=== PATIENT | male | born 1970 ===

== ENCOUNTER 2024-03-11 14:09 | Emergency (ER) | payer SELFPAY ==
[2024-03-11] MEDS: Acetaminophen/HYDROcodone 325-5 MG Tab PO ONE (14:26)
[2024-03-11] MEDS: Sodium Chloride 0.9% 1,000 ML IV ONE (14:26)
[2024-03-11 14:27] LABS: BASOPHILS ABSOLUTE AUTO 0.05 K/uL (0.00-0.20); BASOPHILS PERCENT AUTO 0.6 % (0.0-1.0); HEMATOCRIT 47.8 % (42.0-52.0); HEMOGLOBIN 16.4 g/dL (14.0-18.0); IMMATURE GRAN ABSOLUTE AUTO 0.01 K/uL (0.00-0.05); IMMATURE GRAN PERCENT AUTO 0.1 % (0.0-0.4); LYMPHOCYTES ABSOLUTE AUTO 2.13 K/uL (1.00-4.80); LYMPHOCYTES PERCENT AUTO 26.7 % (24.0-44.0); MEAN CORPUSCULAR HGB CONC 34.3 g/dL (32.0-36.0); MEAN CORPUSCULAR VOLUME 87.4 fL (83.0-99.0); MEAN PLATELET VOLUME 9.7 fL (9.4-12.4); MONOCYTES ABSOLUTE AUTO 0.44 K/uL (0.00-0.80); MONOCYTES PERCENT AUTO 5.5 % (0.0-8.0); NEUTROPHILS ABSOLUTE AUTO 5.35 K/uL (1.80-7.70); NEUTROPHILS PERCENT AUTO 67.1 % (41.0-71.0); PLATELET COUNT,PLT 206 K/uL (150-400); RED BLOOD CELL COUNT 5.47 M/uL (4.52-5.90); WHITE BLOOD CELL COUNT,WBC 7.98 K/uL (3.9-11.3)
[2024-03-11] MEDS: Lisinopril 10 MG Tab PO ONE (14:28)
[2024-03-11] MEDS: Ondansetron 4 MG Tab.DIS PO ONE (14:29)
[2024-03-11 15:01] LABS: ALBUMIN 3.8 g/dL (3.4-5.0); BILIRUBIN TOTAL 0.6 mg/dL (0.2-1.0); CALCIUM 8.6 mg/dL (8.5-10.1); CARBON DIOXIDE,CO2 24.3 mmol/L (21.0-32.0); CREATININE 1.1 mg/dL (0.8-1.3); EST CRCL DRUG DOSING (CG) 70.94 mL/min; POTASSIUM,K 3.9 mmol/L (3.5-5.1); PROTEIN TOTAL,TP 7.6 g/dL (6.4-8.2)
[2024-03-11] MEDS: hydrALAZINE 20 MG/ML SDV IVPUSH ONE (16:01)
[2024-03-11 16:16] LABS: APPEARANCE,URINE CLEAR; BILIRUBIN,URINE NEGATIVE (NEGATIVE); COLOR,URINE YELLOW; GLUCOSE,URINE NEGATIVE (NEGATIVE); KETONES,URINE NEGATIVE (NEGATIVE); LEUKOCYTE ESTERASE,URINE NEGATIVE (NEGATIVE); NITRITE,URINE NEGATIVE (NEGATIVE); OCCULT BLOOD,URINE NEGATIVE (NEGATIVE); PH,URINE 6.5 (5.0-8.0); PROTEIN,URINE NEGATIVE (NEGATIVE); UROBILINOGEN,URINE 0.2 EU/dL (<2.0)
== END 2024-03-11 16:42 | disposition home or self-care (01) ==
LOC: MW.ED 14:09
DX: I10 Essential (primary) hypertension (principal); Z79.899 Other long term (current) drug therapy; Z75.8 Other problems related to medical facilities and other health care
CPT/HCPCS: 36415; 80053; 81003; 84484; 85025; 93005; 96361; 96374; 99283; A9270; J0360; J7030; 93010; 99284

== ENCOUNTER 2024-03-12 15:34 | Emergency (ER) | payer SELFPAY ==
[2024-03-12] MEDS: hydrALAZINE 20 MG/ML SDV IVPUSH ONE ×2 (16:29→16:57)
== END 2024-03-12 17:23 | disposition home or self-care (01) ==
LOC: MW.ED 15:34
DX: R03.0 Elevated blood-pressure reading, without diagnosis of hypertension (principal)
CPT/HCPCS: 96374; 99283; J0360; 99284

== ENCOUNTER 2024-05-21 22:07 | Emergency (ER) | payer SELFPAY ==
[2024-05-21 22:52] LABS: BASOPHILS ABSOLUTE AUTO 0.06 K/uL (0.00-0.20); BASOPHILS PERCENT AUTO 0.5 % (0.0-1.0); EOSINOPHILS ABSOLUTE AUTO 0.11 K/uL (0.00-0.45); HEMATOCRIT 43.1 % (42.0-52.0); HEMOGLOBIN 15.1 g/dL (14.0-18.0); IMMATURE GRAN ABSOLUTE AUTO 0.02 K/uL (0.00-0.05); IMMATURE GRAN PERCENT AUTO 0.2 % (0.0-0.4); LYMPHOCYTES ABSOLUTE AUTO 3.07 K/uL (1.00-4.80); MEAN CORPUSCULAR HEMOGLOBIN 30.6 pg (28.0-32.0); MEAN CORPUSCULAR VOLUME 87.2 fL (83.0-99.0); MEAN PLATELET VOLUME 9.7 fL (9.4-12.4); MONOCYTES ABSOLUTE AUTO 0.65 K/uL (0.00-0.80); MONOCYTES PERCENT AUTO 5.9 % (0.0-8.0); NEUTROPHILS ABSOLUTE AUTO 7.06 K/uL (1.80-7.70); NEUTROPHILS PERCENT AUTO 64.4 % (41.0-71.0); PLATELET COUNT,PLT 252 K/uL (150-400); RED BLOOD CELL COUNT 4.94 M/uL (4.52-5.90); WHITE BLOOD CELL COUNT,WBC 10.97 K/uL (3.9-11.3)
[2024-05-21] MEDS: Sodium Chloride 0.9% 500 ML IV ONE (23:08)
[2024-05-21] MEDS: Sodium Chloride 0.9% 2.5 ML Syringe FLUSH PRN (23:08)
[2024-05-21] MEDS: Albuterol/Ipratropium 3.0-0.5 MG/3 ML Neb Soln NEB ONE (23:08)
[2024-05-21] MEDS: Sodium Chloride 0.9% 10 ML Syringe FLUSH PRN (23:08)
[2024-05-21 23:20] LABS: A/G RATIO 1.1 (0.9-1.6); ALBUMIN 3.7 g/dL (3.4-5.0); BILIRUBIN TOTAL 0.2 mg/dL (0.2-1.0); CALCIUM 8.8 mg/dL (8.5-10.1); CARBON DIOXIDE,CO2 28.7 mmol/L (21.0-32.0); CREATININE 1.4 mg/dL (0.8-1.3); EST CRCL DRUG DOSING (CG) 61.56 mL/min; POTASSIUM,K 4.1 mmol/L (3.5-5.1); PROTEIN TOTAL,TP 7.2 g/dL (6.4-8.2)
[2024-05-22 00:02] LABS: PROLACTIN 11.7 ng/mL
== END 2024-05-22 01:36 | disposition home or self-care (01) ==
LOC: MW.ED 22:07
DX: R05.9 Cough, unspecified (principal); R55 Syncope and collapse; I10 Essential (primary) hypertension
CPT/HCPCS: 36415; 70450; 71046; 80053; 82550; 83735; 83880; 84146; 84484; 85025; 85379; 93005; 96360; 99285; J3490; J7040; 93010; 99283; J7620-GY